=== PATIENT | female | born 2000 | race Two or more races ===

== ENCOUNTER 2019-08-14 22:04 | Inpatient (IN) | payer OTHER ==
[~2019-08-14] VITALS: Ht 154.9 cm; Wt 92.3 kg
--- NOTE | 2019-08-14 22:28 | NUR ---
PT IN MODERATE DISTRESS D/T NAUSEA & SEVERE HEADACHE, STATES HEADACHE INCREASES WITH MOVEMENT. TO CT VIA PAUL NOW. Addendum: 08/14/19 at 2229 by ELIZABETH ERP WAS IN TO SEE PT.
[2019-08-14] MEDS ORDERED: SODIUM CHLORIDE FLUSH 10ML SYR IVF ONE (22:30)
[2019-08-14] MEDS ORDERED: METOCLOPRAMIDE 5 MG/ML, 2ML IVPush ONE (22:30)
[2019-08-14] MEDS ORDERED: SODIUM CHLORIDE 0.9% 1,000ML IVBOLUS ONE (22:30)
[2019-08-14] MEDS ORDERED: KETOROLAC 30 MG/1 ML IVPush ONE (22:30)
[2019-08-14] MEDS ORDERED: MORPHINE SULFATE 4 MG/ML, 1ML IVPush PRN (22:30)
[2019-08-14] MEDS ORDERED: METOCLOPRAMIDE 5 MG/ML, 2ML ONE (22:31)
[2019-08-14] MEDS ORDERED: KETOROLAC 30 MG/1 ML ONE (22:31)
[2019-08-14] MEDS ORDERED: MORPHINE SULFATE 4 MG/ML, 1ML ONE (22:32)
[2019-08-14] MEDS ORDERED: LIDOCAINE-MPF 1%, 5ML ONE (22:32)
--- NOTE | 2019-08-14 22:50 | NUR ---
IV STARTED AND PT MEDICATED PER ORDERS. UNDERSTANDS POC.
[2019-08-14] MEDS ORDERED: CARI3CAP PO (23:00)
[2019-08-14] MEDS ORDERED: LIDOCAINE-MPF 1%, 5ML INFIL ONE (23:00)
[2019-08-14 23:11] LABS: BASOPHILS # (AUTO) 0.05 x10^3/uL (0-0.3); BASOPHILS % (AUTO) 0 % (0-1); EOSINOPHILS # (AUTO) 0.27 x10^3/uL (0-0.8); EOSINOPHILS % (AUTO) 2 % (1-7); LYMPHOCYTES # (AUTO) 2.38 x10^3/uL (1-6.1); LYMPHOCYTES % (AUTO) 20 % (22-44); MD NO; MEAN CORPUSCULAR HEMOGLOBIN 28.8 pg (27.0-34.8); MEAN CORPUSCULAR HGB CONC 33.6 g/dL (32.4-35.8); MEAN CORPUSCULAR VOLUME 85.8 fL (80-100); MEAN PLATELET VOLUME 7.6 fL (7.4-10.4); MONOCYTES % (AUTO) 8 % (2-9); NEUTROPHILS % (AUTO) 70 % (42-75); PLATELET COUNT 295 x10^3/uL (130-400); RED BLOOD COUNT 4.86 x10^6/uL (3.82-5.3); RED CELL DISTRIBUTION WIDTH 13.3 % (9.6-15.2)
--- NOTE | 2019-08-14 23:11 | NUR ---
ERP AT FOR LP. REPORTED TO HALIMA HAM.
[2019-08-14 23:12] LABS: ALANINE AMINOTRANSFERASE 12 U/L (12-78); ALBUMIN 3.7 g/dL (3.4-5.0); ANION GAP 10 mmol/L (5-15); CALCIUM 9.1 mg/dL (8.5-10.1); CHLORIDE 105 mmol/L (98-107); CREATININE 0.83 mg/dL (0.55-1.02)
[2019-08-14 23:16] LABS: ALKALINE PHOSPHATASE 78 U/L (45-117); BILIRUBIN,TOTAL 0.4 mg/dL (0.2-1.0); TOTAL PROTEIN 7.4 g/dL (6.4-8.2)
--- NOTE | 2019-08-14 23:41 | NUR ---
REPORT OF PT FROM FATOUMATA WALKER AND ASSUMING CARE OF PT AT THIS TIME. PT AMBULATES TO RESTROOM WITH STEADY GAIT AT THIS TIME TO VOID FOR UA.
[2019-08-14 23:51] LABS: GLUCOSE, CSF 55 mg/dL (40-80); TOTAL PROTEIN,CSF 32 mg/dL (15-45)
[2019-08-15] MEDS ORDERED: CEFTRIAXONE PMX 2GM/50ML 50 ML IV ONE
[2019-08-15] MEDS ORDERED: DEXAMETHASONE 4 MG/ML, 1ML IVPush ONE
[2019-08-15] MEDS ORDERED: CEFTRIAXONE PMX 1GM/50ML 50 ML ONE (00:03)
[2019-08-15] MEDS ORDERED: DEXAMETHASONE 4 MG/ML, 5ML ONE (00:03)
[2019-08-15] MEDS ORDERED: CEFTRIAXONE PMX 2GM/50ML 50 ML ONE (00:10)
[2019-08-15 00:11] LABS: MICROSCOPIC NOT IND
--- NOTE | 2019-08-15 00:16 | NUR ---
PT MEDICATED PER MAR AT THIS TIME. HALIMA LARIOS AT BS FOR ADMIT PLAN. PT HAS CALL LIGHT WITHIN REACH.
[2019-08-15 00:19] LABS: CULTURE INDICATED? NO
[2019-08-15] MEDS ORDERED: BISACODYL 10 MG SUPP PR PRN (00:30)
[2019-08-15] MEDS ORDERED: POLYETHYLENE GLYCOL 17 GM PACKET PO PRN (00:30)
[2019-08-15] MEDS ORDERED: VANCOMYCIN PER PHARMACY MC PRN ×2 (00:30)
[2019-08-15] MEDS ORDERED: ACETAMINOPHEN 325 MG TABLET PO PRN (00:30)
[2019-08-15] MEDS ORDERED: IGG (00:46)
--- NOTE | 2019-08-15 00:50 | NUR ---
REPORT OF PT TO FATOUMATA ROME. ALL QUESTIONS ANSWERED. STILL AWATING VANCOMYCIN FROM PHARMACY. FATOUMATA ROME AWARE THAT ABX AREN'T AVAILABLE FOR ADMINISTRATION AT THIS TIME.
[2019-08-15 01:22] VITALS: BP 108/57
[2019-08-15] MEDS ORDERED: PHARMACOKINETIC MONITORING MC PRN (01:30)
[2019-08-15] MEDS ORDERED: VANCOMYCIN 2,000 MG in SODIUM CHLORIDE 0.9% 500 ML IV ONE (02:00)
[2019-08-15] MEDS: ACYCLOVIR 800 MG in SODIUM CHLORIDE 0.9% 250 ML IV SCH ×3 (02:15→18:26)
[2019-08-15] MEDS: BUTALB/APAP/CAFFEINE 50MG/325MG/40MG PO PRN ×6 (02:18→23:52)
[2019-08-15] MEDS: DEXAMETHASONE 4 MG/ML, 1ML IVPush SCH ×4 (06:07→23:53)
[2019-08-15] MEDS: ONDANSETRON ODT 4 MG PO PRN ×3 (06:12→19:53)
[2019-08-15 06:22] LABS: BASOPHILS % (AUTO) 0 % (0-1); EOSINOPHILS % (AUTO) 0 % (1-7); LYMPHOCYTES # (AUTO) 1.06 x10^3/uL (1-6.1); LYMPHOCYTES % (AUTO) 8 % (22-44); MD NO; MEAN CORPUSCULAR HGB CONC 33.9 g/dL (32.4-35.8); MEAN CORPUSCULAR VOLUME 85.7 fL (80-100); MEAN PLATELET VOLUME 8.2 fL (7.4-10.4); MONOCYTES # (AUTO) 0.05 x10^3/uL (0-1.4); MONOCYTES % (AUTO) 0 % (2-9); NEUTROPHILS # (AUTO) 11.55 x10^3/uL (1.8-8.0); NEUTROPHILS % (AUTO) 91 % (42-75); PLATELET COUNT 276 x10^3/uL (130-400); RED CELL DISTRIBUTION WIDTH 13.2 % (9.6-15.2)
[2019-08-15 06:29] LABS: ANION GAP 8 mmol/L (5-15); CALCIUM 8.8 mg/dL (8.5-10.1); CHLORIDE 111 mmol/L (98-107); CREATININE 0.72 mg/dL (0.55-1.02)
[2019-08-15 07:20] VITALS: BP 103/61
[2019-08-15] MEDS: CARIPRAZINE HYDROCHLORIDE 3 MG PO SCH (09:00)
[2019-08-15] MEDS: SENNA/DOCUSATE TABLET PO SCH (10:41)
[2019-08-15] MEDS: SODIUM CHLORIDE FLUSH 10ML SYR IVF SCH ×2 (10:42→19:53)
[2019-08-15] MEDS: VANCOMYCIN 1,700 MG in SODIUM CHLORIDE 0.9% 250 ML IV SCH ×2 (12:46→19:53)
[2019-08-15 13:37] VITALS: BP 126/86
[2019-08-15] MEDS: PROMETHAZINE 25MG TABLET PO PRN (14:41)
[2019-08-15 20:46] VITALS: BP 107/63
[2019-08-15] MEDS: CEFTRIAXONE PMX 2GM/50ML 50 ML IV SCH (23:53)
[2019-08-16 00:05] VITALS: BP 98/63
[2019-08-16] MEDS: ACYCLOVIR 800 MG in SODIUM CHLORIDE 0.9% 250 ML IV SCH ×3 (02:01→18:20)
[2019-08-16] MEDS: VANCOMYCIN 1,700 MG in SODIUM CHLORIDE 0.9% 250 ML IV SCH (03:57)
[2019-08-16] MEDS: BUTALB/APAP/CAFFEINE 50MG/325MG/40MG PO PRN ×3 (03:57→19:25)
[2019-08-16] MEDS: PROMETHAZINE 25MG TABLET PO PRN (04:51)
[2019-08-16] MEDS: DEXAMETHASONE 4 MG/ML, 1ML IVPush SCH ×4 (05:33→23:43)
[2019-08-16 06:50] LABS: MEAN CORPUSCULAR HGB CONC 33.5 g/dL (32.4-35.8); MEAN CORPUSCULAR VOLUME 86.6 fL (80-100); MEAN PLATELET VOLUME 8.1 fL (7.4-10.4); PLATELET COUNT 293 x10^3/uL (130-400); RED BLOOD COUNT 4.58 x10^6/uL (3.82-5.3)
[2019-08-16 06:51] LABS: HCT (SEDRATE) 39.7 % (34.6-47.8)
[2019-08-16 06:57] LABS: ALANINE AMINOTRANSFERASE 12 U/L (12-78); ALBUMIN 3.3 g/dL (3.4-5.0); ANION GAP 7 mmol/L (5-15); C-REACTIVE PROTEIN, QUANT 0.09 mg/dL (0.02-0.49); CALCIUM 8.9 mg/dL (8.5-10.1); CHLORIDE 112 mmol/L (98-107); CREATININE 0.77 mg/dL (0.55-1.02)
[2019-08-16 07:00] LABS: ALKALINE PHOSPHATASE 61 U/L (45-117); BILIRUBIN,TOTAL 0.3 mg/dL (0.2-1.0); TOTAL PROTEIN 6.8 g/dL (6.4-8.2)
[2019-08-16 07:03] VITALS: BP 97/54
[2019-08-16 07:08] LABS: BASOPHILS % (AUTO) 0 % (0-1); EOSINOPHILS % (AUTO) 0 % (1-7); LYMPHOCYTES # (AUTO) 1.39 x10^3/uL (1-6.1); LYMPHOCYTES % (AUTO) 8 % (22-44); MD SCAN; MONOCYTES # (AUTO) 0.29 x10^3/uL (0-1.4); MONOCYTES % (AUTO) 2 % (2-9); NEUTROPHILS # (AUTO) 16.46 x10^3/uL (1.8-8.0); NEUTROPHILS % (AUTO) 91 % (42-75)
[2019-08-16] MEDS: HYDROcodone/APAP 5/325 TABLET PO PRN (07:33)
[2019-08-16] MEDS: CARIPRAZINE HYDROCHLORIDE 3 MG PO SCH (07:34)
[2019-08-16] MEDS: SENNA/DOCUSATE TABLET PO SCH (07:35)
[2019-08-16] MEDS: SODIUM CHLORIDE FLUSH 10ML SYR IVF SCH ×2 (07:35→19:59)
[2019-08-16] MEDS: ONDANSETRON ODT 4 MG PO PRN ×2 (09:52→23:43)
[2019-08-16] MEDS: CEFTRIAXONE PMX 2GM/50ML 50 ML IV SCH ×2 (12:25→23:43)
[2019-08-16] MEDS: KETOROLAC 30 MG/1 ML IVPush PRN ×2 (12:26→18:21)
[2019-08-16 13:25] VITALS: BP 119/67
[2019-08-16 19:50] VITALS: BP 120/71
[2019-08-17] MEDS: VANCOMYCIN 1,700 MG in SODIUM CHLORIDE 0.9% 250 ML IV SCH ×2 (00:15→12:52)
[2019-08-17 01:13] VITALS: BP 124/74
[2019-08-17] MEDS: PROMETHAZINE 25MG TABLET PO PRN ×2 (01:37→10:15)
[2019-08-17] MEDS: ACYCLOVIR 800 MG in SODIUM CHLORIDE 0.9% 250 ML IV SCH ×3 (01:38→17:46)
[2019-08-17] MEDS: DEXAMETHASONE 4 MG/ML, 1ML IVPush SCH ×3 (05:46→17:46)
[2019-08-17] MEDS: ONDANSETRON ODT 4 MG PO PRN ×3 (06:28→20:13)
[2019-08-17 06:56] VITALS: BP 134/81
[2019-08-17] MEDS: SODIUM CHLORIDE FLUSH 10ML SYR IVF SCH ×2 (07:38→20:13)
[2019-08-17] MEDS: CARIPRAZINE HYDROCHLORIDE 3 MG PO SCH (07:38)
[2019-08-17] MEDS: SENNA/DOCUSATE TABLET PO SCH (07:46)
[2019-08-17] MEDS: KETOROLAC 30 MG/1 ML IVPush PRN ×3 (07:47→22:52)
[2019-08-17 08:44] LABS: MEAN CORPUSCULAR HEMOGLOBIN 28.9 pg (27.0-34.8); MEAN CORPUSCULAR HGB CONC 33.3 g/dL (32.4-35.8); MEAN CORPUSCULAR VOLUME 86.7 fL (80-100); MEAN PLATELET VOLUME 7.9 fL (7.4-10.4); PLATELET COUNT 296 x10^3/uL (130-400); RED CELL DISTRIBUTION WIDTH 13.1 % (9.6-15.2)
[2019-08-17 08:50] LABS: ALANINE AMINOTRANSFERASE 12 U/L (12-78); ALBUMIN 3.4 g/dL (3.4-5.0); ANION GAP 9 mmol/L (5-15); CHLORIDE 110 mmol/L (98-107); CREATININE 0.96 mg/dL (0.55-1.02)
[2019-08-17 08:52] LABS: ALKALINE PHOSPHATASE 57 U/L (45-117); BILIRUBIN,TOTAL 0.2 mg/dL (0.2-1.0)
[2019-08-17 09:28] LABS: BASOPHILS # (AUTO) 0.01 x10^3/uL (0-0.3); BASOPHILS % (AUTO) 0 % (0-1); EOSINOPHILS # (AUTO) 0.17 x10^3/uL (0-0.8); EOSINOPHILS % (AUTO) 1 % (1-7); LYMPHOCYTES # (AUTO) 1.16 x10^3/uL (1-6.1); LYMPHOCYTES % (AUTO) 6 % (22-44); MD SCAN; MONOCYTES # (AUTO) 0.46 x10^3/uL (0-1.4); MONOCYTES % (AUTO) 3 % (2-9); NEUTROPHILS # (AUTO) 16.31 x10^3/uL (1.8-8.0); NEUTROPHILS % (AUTO) 90 % (42-75)
[2019-08-17] MEDS: CEFTRIAXONE PMX 2GM/50ML 50 ML IV SCH (11:49)
[2019-08-17] MEDS: BUTALB/APAP/CAFFEINE 50MG/325MG/40MG PO PRN ×2 (11:55→20:13)
[2019-08-17 13:49] VITALS: BP 114/67
[2019-08-17] MEDS: HYDROcodone/APAP 5/325 TABLET PO PRN (17:45)
[2019-08-17 20:11] VITALS: BP 130/80
[2019-08-18] MEDS: CEFTRIAXONE PMX 2GM/50ML 50 ML IV SCH ×2 (00:05→13:54)
[2019-08-18] MEDS: HYDROcodone/APAP 5/325 TABLET PO PRN ×3 (00:06→17:49)
[2019-08-18] MEDS: DEXAMETHASONE 4 MG/ML, 1ML IVPush SCH ×4 (00:11→18:08)
[2019-08-18 00:29] VITALS: BP 128/92
[2019-08-18] MEDS: VANCOMYCIN 1,700 MG in SODIUM CHLORIDE 0.9% 250 ML IV SCH (01:34)
[2019-08-18] MEDS: ACYCLOVIR 800 MG in SODIUM CHLORIDE 0.9% 250 ML IV SCH ×3 (03:09→19:59)
[2019-08-18] MEDS: BUTALB/APAP/CAFFEINE 50MG/325MG/40MG PO PRN ×2 (03:12→21:54)
[2019-08-18 06:16] LABS: ANION GAP 7 mmol/L (5-15); CALCIUM 8.3 mg/dL (8.5-10.1); CHLORIDE 110 mmol/L (98-107)
[2019-08-18 06:19] LABS: CREATININE 0.77 mg/dL (0.55-1.02)
[2019-08-18 06:28] LABS: MEAN CORPUSCULAR HEMOGLOBIN 28.9 pg (27.0-34.8); MEAN CORPUSCULAR HGB CONC 33.2 g/dL (32.4-35.8); MEAN PLATELET VOLUME 8.4 fL (7.4-10.4); PLATELET COUNT 258 x10^3/uL (130-400); RED BLOOD COUNT 4.32 x10^6/uL (3.82-5.3); RED CELL DISTRIBUTION WIDTH 13.3 % (9.6-15.2)
[2019-08-18 07:00] LABS: BASOPHILS # (AUTO) 0.02 x10^3/uL (0-0.3); BASOPHILS % (AUTO) 0 % (0-1); EOSINOPHILS % (AUTO) 0 % (1-7); LYMPHOCYTES # (AUTO) 1.62 x10^3/uL (1-6.1); LYMPHOCYTES % (AUTO) 11 % (22-44); MD SCAN; MONOCYTES # (AUTO) 0.63 x10^3/uL (0-1.4); MONOCYTES % (AUTO) 4 % (2-9); NEUTROPHILS # (AUTO) 12.08 x10^3/uL (1.8-8.0); NEUTROPHILS % (AUTO) 84 % (42-75)
[2019-08-18] MEDS: SODIUM CHLORIDE FLUSH 10ML SYR IVF SCH ×2 (07:44→19:59)
[2019-08-18 08:51] VITALS: BP 135/99
[2019-08-18] MEDS: CARIPRAZINE HYDROCHLORIDE 3 MG PO SCH (09:00)
[2019-08-18] MEDS: SENNA/DOCUSATE TABLET PO SCH (09:27)
[2019-08-18] MEDS: ONDANSETRON ODT 4 MG PO PRN ×2 (09:27→18:13)
[2019-08-18] MEDS: D5%-0.45NACL+KCL 20MEQ 1,000 ML IV SCH (12:09)
[2019-08-18] MEDS: PROMETHAZINE 25MG TABLET PO PRN (12:42)
[2019-08-18] MEDS: KETOROLAC 30 MG/1 ML IVPush PRN (12:42)
[2019-08-18] MEDS ORDERED: VANCOMYCIN 2,000 MG in SODIUM CHLORIDE 0.9% 500 ML IV SCH (13:30)
[2019-08-18 15:40] VITALS: BP 116/73
[2019-08-18 19:15] VITALS: BP 127/77
[2019-08-19] MEDS: DEXAMETHASONE 4 MG/ML, 1ML IVPush SCH ×2 (00:21→05:59)
[2019-08-19 00:33] VITALS: BP 103/72
[2019-08-19 00:35] VITALS: BP 121/68
[2019-08-19] MEDS: D5%-0.45NACL+KCL 20MEQ 1,000 ML IV SCH ×2 (01:43→16:08)
[2019-08-19] MEDS: ONDANSETRON ODT 4 MG PO PRN ×3 (04:22→14:41)
[2019-08-19] MEDS: KETOROLAC 30 MG/1 ML IVPush PRN ×3 (04:22→22:56)
[2019-08-19] MEDS: ACYCLOVIR 800 MG in SODIUM CHLORIDE 0.9% 250 ML IV SCH ×3 (04:35→21:00)
[2019-08-19 05:49] LABS: BASOPHILS # (AUTO) 0.05 x10^3/uL (0-0.3); BASOPHILS % (AUTO) 0 % (0-1); EOSINOPHILS % (AUTO) 0 % (1-7); LYMPHOCYTES # (AUTO) 1.86 x10^3/uL (1-6.1); LYMPHOCYTES % (AUTO) 12 % (22-44); MD NO; MEAN CORPUSCULAR HGB CONC 33.4 g/dL (32.4-35.8); MEAN CORPUSCULAR VOLUME 86.9 fL (80-100); MEAN PLATELET VOLUME 8.1 fL (7.4-10.4); MONOCYTES # (AUTO) 0.97 x10^3/uL (0-1.4); MONOCYTES % (AUTO) 6 % (2-9); NEUTROPHILS # (AUTO) 13.02 x10^3/uL (1.8-8.0); NEUTROPHILS % (AUTO) 82 % (42-75); PLATELET COUNT 260 x10^3/uL (130-400); RED BLOOD COUNT 4.36 x10^6/uL (3.82-5.3); RED CELL DISTRIBUTION WIDTH 12.9 % (9.6-15.2)
[2019-08-19 05:52] LABS: ALBUMIN 3.1 g/dL (3.4-5.0); ANION GAP 8 mmol/L (5-15); CALCIUM 8.3 mg/dL (8.5-10.1); CHLORIDE 112 mmol/L (98-107)
[2019-08-19 05:55] LABS: ALANINE AMINOTRANSFERASE 16 U/L (12-78); ALKALINE PHOSPHATASE 53 U/L (45-117); BILIRUBIN,TOTAL 0.3 mg/dL (0.2-1.0); CREATININE 0.76 mg/dL (0.55-1.02); TOTAL PROTEIN 6.4 g/dL (6.4-8.2)
[2019-08-19 05:56] LABS: C-REACTIVE PROTEIN, QUANT < 0.02 mg/dL (0.02-0.49)
[2019-08-19 06:34] LABS: HCT (SEDRATE) 37.9 % (34.6-47.8)
[2019-08-19 07:46] VITALS: BP_SYST 122; BP_SYST 145; BP_DIAS 62; BP_DIAS 85
[2019-08-19] MEDS: SENNA/DOCUSATE TABLET PO SCH (08:41)
[2019-08-19] MEDS: SODIUM CHLORIDE FLUSH 10ML SYR IVF SCH ×2 (08:43→21:00)
[2019-08-19] MEDS: CARIPRAZINE HYDROCHLORIDE 3 MG PO SCH (09:00)
[2019-08-19] MEDS ORDERED: LORazepam 2 MG/ML, 1ML IVPush ONE (14:30)
[2019-08-19] MEDS: HYDROcodone/APAP 5/325 TABLET PO PRN (14:41)
[2019-08-19] MEDS: BUTALB/APAP/CAFFEINE 50MG/325MG/40MG PO PRN (14:42)
[2019-08-19 14:45] VITALS: BP 132/75
[2019-08-19 19:44] VITALS: BP 104/53
[2019-08-20 01:02] VITALS: BP 118/66
[2019-08-20] MEDS: ONDANSETRON ODT 4 MG PO PRN ×2 (03:46→12:06)
[2019-08-20] MEDS: ACYCLOVIR 800 MG in SODIUM CHLORIDE 0.9% 250 ML IV SCH (04:57)
[2019-08-20] MEDS ORDERED: LORazepam 2 MG/ML, 1ML IVPush ONE (05:00)
[2019-08-20 05:22] LABS: ALBUMIN 2.8 g/dL (3.4-5.0); ANION GAP 5 mmol/L (5-15); CHLORIDE 109 mmol/L (98-107)
[2019-08-20 05:27] LABS: ALANINE AMINOTRANSFERASE 19 U/L (12-78); ALKALINE PHOSPHATASE 49 U/L (45-117); BILIRUBIN,TOTAL 0.2 mg/dL (0.2-1.0); CREATININE 0.74 mg/dL (0.55-1.02); TOTAL PROTEIN 5.6 g/dL (6.4-8.2)
[2019-08-20 07:03] VITALS: BP 125/88
[2019-08-20] MEDS: SENNA/DOCUSATE TABLET PO SCH (09:00)
[2019-08-20] MEDS: CARIPRAZINE HYDROCHLORIDE 3 MG PO SCH (09:00)
[2019-08-20] MEDS: SODIUM CHLORIDE FLUSH 10ML SYR IVF SCH (09:49)
[2019-08-20] MEDS ORDERED: POTASSIUM CHLORIDE 20 MEQ TAB.ER.PRT PO ONE (10:30)
[2019-08-20] MEDS: BUTALB/APAP/CAFFEINE 50MG/325MG/40MG PO PRN (10:34)
[2019-08-20] MEDS: D5%-0.45NACL+KCL 20MEQ 1,000 ML IV SCH (10:38)
[2019-08-20 13:11] VITALS: BP 141/104
== END 2019-08-20 13:37 | disposition left against medical advice (07) | DRG 103 ==
LOC: ED 23:33 → EDIP 23:55 → 3N 08-15 01:10
PROVIDERS: ADMIT Internal Medicine; ATTEND Family Medicine
PROC: 009U3ZX Drainage of Spinal Canal, Percutaneous Approach, Diagnostic (ICD-10-PCS; principal; 2019-08-14)
DX: G43.C0 Periodic headache syndromes in child or adult, not intractable (principal); D84.8 Other specified immunodeficiencies; E87.6 Hypokalemia; F12.90 Cannabis use, unspecified, uncomplicated; E86.0 Dehydration; R26.89 Other abnormalities of gait and mobility; R11.2 Nausea with vomiting, unspecified; F31.9 Bipolar disorder, unspecified; Z63.8 Other specified problems related to primary support group; Z79.899 Other long term (current) drug therapy; Z80.0 Family history of malignant neoplasm of digestive organs; Z82.5 Family history of asthma and other chronic lower respiratory diseases; Z86.19 Personal history of other infectious and parasitic diseases; Z86.61 Personal history of infections of the central nervous system; Z90.49 Acquired absence of other specified parts of digestive tract; Z88.8 Allergy status to other drugs, medicaments and biological substances
CPT/HCPCS: 36415; 62270; 84145; 89051; 96361; 96374; 99285; Q0169; 70450; 80048; 80053; 80202; 81003; 82945; 83735; 84100; 84157; 84703; 85025; 85651; 86140; 87040; 87070; 87205; 87252; G0378; J0133; J0696; J1100; J1885; J3370; Q0162; J2060; J2270; J2765; J3480; J7030; J7040; J7050